=== PATIENT | female | born 1975 | race Caucasian/White ===

== ENCOUNTER 2017-05-19 12:53 | Emergency (ER) | payer OTHER ==
[2017-05-19] MEDS ORDERED: OXYCODONE-ACETAMINOPHEN 5-325 MG TABLET PO ONE (13:11)
[2017-05-19] MEDS ORDERED: IBUPROFEN 600 MG TABLET PO ONE (13:11)
[2017-05-19] MEDS ORDERED: LIDOCAINE 1%/EPINEPHRINE INJ 20 ML VIAL INJ ONE (13:11)
--- NOTE | 2017-05-19 13:13 | ER Document Report ---
ED Medical Screen (RME) - General Chief Complaint: Abscess Stated Complaint: CYST ON THIGH Time Seen by Provider: 05/19/17 13:11 Notes: Patient is a 42-year-old female, past medical history multiple abscesses, presents with 3 days of left groin abscess. PE: large left inguinal/inner leg abscess with surrounding erythema I have greeted and performed a rapid initial assessment of this patient. A comprehensive ED assessment and evaluation of the patient, analysis of test results and completion of the medical decision making process will be conducted by additional ED providers. TRAVEL OUTSIDE OF THE [place] IN LAST 30 DAYS: No - Related Data Allergies/Adverse Reactions: amylase [From Pancrease MT 4] Allergy (Verified 11/30/11 06:07) diphenhydramine HCl [From Benadryl] Allergy (Verified 11/30/11 06:07) lipase [From Pancrease MT 4] Allergy (Verified 11/30/11 06:07) protease [From Pancrease MT 4] Allergy (Verified 11/30/11 06:07) Sulfa (Sulfonamide Antibiotics) Allergy (Verified 11/30/11 06:07) Past Medical History Renal/ Medical History: Denies: Hx Peritoneal Dialysis - Immunizations Hx Diphtheria, Pertussis, Tetanus Vaccination: Yes Physical Exam - Vital signs Vitals: Temp Pulse Resp BP Pulse Ox 98.3 F 96 16 129/93 H 96 05/19/17 13:04 05/19/17 13:04 05/19/17 13:04 05/19/17 13:04 05/19/17 13:04 Course - Vital Signs Vital signs: Temp Pulse Resp BP Pulse Ox 98.3 F 96 16 129/93 H 96 05/19/17 13:04 05/19/17 13:04 05/19/17 13:04 05/19/17 13:04 05/19/17 13:04
[2017-05-19] MEDS ORDERED: LIDOCAINE 4%/TETRACAINE 0.5%/EPI 0.18% 5 ML TOPICAL SOLN TOP ONE (13:38)
[2017-05-19] MEDS ORDERED: LIDOCAINE 1% INJ-PF (10 MG/ML) 30 ML SDV ONE (14:03)
[2017-05-19] MEDS ORDERED: DOXYCYCLINE HYCLATE 100 MG TABLET PO ONE (15:00)
--- NOTE | 2017-05-19 15:06 | ER Document Report ---
ED General - General Chief Complaint: Abscess Stated Complaint: CYST ON THIGH Time Seen by Provider: 05/19/17 13:11 TRAVEL OUTSIDE OF THE [place] IN LAST 30 DAYS: No - HPI Patient complains to provider of: Inguinal abscess Notes: Patient coming in for evaluation of left inguinal abscess ongoing for the last 3 days. Patient is very painful to touch abscess is in the inguinal area adjacent to the labia there is some surrounding cellulitis and redness however patient denies any labial changes denies any peritoneal changes. Denies fevers chills nausea vomiting diarrhea. Patient unaware of any MRSA history denies IV drug use - Related Data Allergies/Adverse Reactions: amylase [From Pancrease MT 4] Allergy (Verified 11/30/11 06:07) diphenhydramine HCl [From Benadryl] Allergy (Verified 11/30/11 06:07) lipase [From Pancrease MT 4] Allergy (Verified 11/30/11 06:07) protease [From Pancrease MT 4] Allergy (Verified 11/30/11 06:07) Sulfa (Sulfonamide Antibiotics) Allergy (Verified 11/30/11 06:07) Past Medical History - Social History Smoking Status: Unknown if Ever Smoked Family History: Reviewed & Not Pertinent Patient has suicidal ideation: No Patient has homicidal ideation: No Renal/ Medical History: Denies: Hx Peritoneal Dialysis - Immunizations Hx Diphtheria, Pertussis, Tetanus Vaccination: Yes Review of Systems - Review of Systems Constitutional: No symptoms reported EENT: No symptoms reported Cardiovascular: No symptoms reported Respiratory: No symptoms reported Gastrointestinal: No symptoms reported Genitourinary: No symptoms reported Female Genitourinary: No symptoms reported Musculoskeletal: No symptoms reported Skin: Other - Abscess Hematologic/Lymphatic: No symptoms reported Neurological/Psychological: No symptoms reported Physical Exam - Vital signs Vitals: Temp Pulse Resp BP Pulse Ox 98.3 F 96 16 129/93 H 96 05/19/17 13:04 05/19/17 13:04 05/19/17 13:04 05/19/17 13:04 05/19/17 13:04 Interpretation: Normal - General General appearance: Appears well, Alert - HEENT Head: Normocephalic, Atraumatic Eyes: Normal Pupils: PERRL - Respiratory Respiratory status: No respiratory distress Chest status: Nontender Breath sounds: Normal Chest palpation: Normal - Cardiovascular Rhythm: Regular Heart sounds: Normal auscultation Murmur: No - Abdominal Inspection: Normal Distension: No distension Bowel sounds: Normal Tenderness: Nontender Organomegaly: No organomegaly - Back Back: Normal, Nontender - Extremities General upper extremity: Normal inspection, Nontender, Normal color, Normal ROM , Normal temperature General lower extremity: Nontender, Normal color, Normal ROM, Normal temperature , Normal weight bearing. No: Normal inspection - Patient with abscess in the left inguinal region with surrounding cellulitis. No erythema in the perineal region no labial involvement, Lexei's sign - Neurological Neuro grossly intact: Yes Cognition: Normal Orientation: AAOx4 [place] Coma Scale Eye Opening: Spontaneous [place] Coma Scale Verbal: Oriented [place] Coma Scale Motor: Obeys Commands [place] Coma Scale Total: 15 Speech: Normal Motor strength normal: LUE, RUE, LLE, RLE Sensory: Normal - Psychological Associated symptoms: Normal affect, Normal mood - Skin Skin Temperature: Warm Skin Moisture: Dry Skin Color: Normal Course - Re-evaluation Re-evalutation: 05/19/17 15:24 Be performed as stated patient will be sent home on doxycycline and pain control. Patient keep the wound clean. Patient will be discharged home - Vital Signs Vital signs: Temp Pulse Resp BP Pulse Ox 98.3 F 96 16 129/93 H 96 05/19/17 13:04 05/19/17 13:04 05/19/17 13:04 05/19/17 13:04 05/19/17 13:04 Procedures - Incision and Drainage Left Thigh Type: Simple Anesthetic type: 1% Lidocaine mL's of anesthetic: 4 Blade size: 11 I&D procedure: Betadine prep applied Incision Method: Incision made by scalpel Amount/type of drainage: 4 cc of pus Notes: 05/19/17 15:25 Patient had I&D of abscess performed with irrigation approximately 30-40 cc normal saline flush to clear loculations skin defect was made to allow for drainage Discharge - Discharge Clinical Impression: Abscess with cellulitis Condition: Good Disposition: HOME, SELF-CARE Instructions: Post Incision and Drainage, Oral Narcotic Medication ([facility]), Abscess ([facility]), Doxycycline ([facility]) Additional Instructions: Take all antibiotics. Continue to monitor the wound if you do see redness again the spread return to the ER. Continue to keep the wound clean Prescriptions: Doxycycline Hyclate 100 mg PO BID #20 capsule Hydrocodone Bit/Acetaminophen [Hydrocodon-Acetaminophen 5-325] 1 each PO Q6 #20 tablet
[2017-05-19 15:32] VITALS: BP 132/97
== END 2017-05-19 15:32 | disposition home or self-care (01) ==
LOC: ER 12:53
PROC: 0H9JXZZ Drainage of Left Upper Leg Skin, External Approach (ICD-10-PCS; principal; 2017-05-19)
DX: L02.416 Cutaneous abscess of left lower limb (principal); L03.116 Cellulitis of left lower limb; Z88.8 Allergy status to other drugs, medicaments and biological substances; Z88.2 Allergy status to sulfonamides
CPT/HCPCS: 10060; 99283; 87070; 87205; 87075; 87077; J3490

== ENCOUNTER 2017-11-28 16:20 | Emergency (ER) | payer OTHER ==
[2017-11-28 16:36] VITALS: BP 136/97
[2017-11-28] MEDS ORDERED: ASPIRIN 325 MG TABLET PO ONE (16:48)
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
[2017-11-28 17:33] LABS: ABSOLUTE BASOPHILS # (AUTO) 0.1 10^3/uL (0.0-0.2); ABSOLUTE EOSINOPHILS # (AUTO) 0.4 10^3/uL (0.0-0.6); ABSOLUTE LYMPHOCYTES (AUTO) 2.5 10^3/uL (0.5-4.7); ABSOLUTE MONOCYTES (AUTO) 0.6 10^3/uL (0.1-1.4); ABSOLUTE NEUT (AUTO) 6.1 10^3/uL (1.7-8.2); BASOPHILS % (AUTO) 0.7 % (0-2); EOSINOPHILS % (AUTO) 3.7 % (0-6); HEMATOCRIT 45.2 % (36.0-47.0); LYMPHOCYTES % (AUTO) 25.9 % (13-45); MEAN CORPUSCULAR HGB CONC 35.4 g/dL (32.0-36.0); MEAN CORPUSCULAR VOLUME 93 fl (80-97); MONOCYTES % (AUTO) 6.1 % (3-13); PLATELET COUNT 236 10^3/uL (150-450); RED BLOOD COUNT 4.85 10^6/uL (3.72-5.28); RED CELL DISTRIBUTION WIDTH 12.9 % (11.5-14.0); SEGMENTED NEUTROPHILS % (AUTO) 63.6 % (42-78); TOTAL CELLS COUNTED % (AUTO) 100 %; WHITE BLOOD COUNT 9.5 10^3/uL (4.0-10.5)
[2017-11-28 17:38] LABS: APPEARANCE,URINE SLIGHTLY-CLOUDY; BILIRUBIN,URINE NEGATIVE (NEGATIVE); COLOR,URINE YELLOW; GLUCOSE, URINE NEGATIVE (NEGATIVE); KETONES,URINE NEGATIVE (NEGATIVE); LEUKOCYTE ESTERASE,URINE TRACE (NEGATIVE); NITRITE,URINE NEGATIVE (NEGATIVE); PROTEIN,URINE NEGATIVE (NEGATIVE); URINE SPECIFIC GRAVITY 1.028; UROBILINOGEN,URINE NEGATIVE mg/dL (<2.0)
--- NOTE | 2017-11-28 17:38 | RADIOLOGY REPORT (SQ) ---
EXAM DESCRIPTION: CHEST PA/LAT COMPLETED DATE/TIME: 11/28/2017 5:29 pm REASON FOR STUDY: CP COMPARISON: 06/13/2009. EXAM PARAMETERS: NUMBER OF VIEWS: two views TECHNIQUE: Digital Frontal and Lateral radiographic views of the chest acquired. RADIATION DOSE: NA LIMITATIONS: none FINDINGS: LUNGS AND PLEURA: No opacities, masses or pneumothorax. No pleural effusion. MEDIASTINUM AND HILAR STRUCTURES: No masses or contour abnormalities. HEART AND VASCULAR STRUCTURES: Heart normal size. No evidence for failure. BONES: No acute findings. HARDWARE: None in the chest. OTHER: No other significant finding. IMPRESSION: NO SIGNIFICANT RADIOGRAPHIC FINDING IN THE CHEST. TECHNICAL DOCUMENTATION: JOB ID: [id number] [employer]- All Rights Reserved
[2017-11-28 17:49] LABS: ALANINE AMINOTRANSFERASE 25 U/L (9-52); ALBUMIN 4.5 g/dL (3.5-5.0); ALKALINE PHOSPHATASE 46 U/L (38-126); ANION GAP 11 (5-19); ASPARTATE AMINO TRANSFERASE 22 U/L (14-36); BILIRUBIN,DIRECT 0.3 mg/dL (0.0-0.4); BILIRUBIN,TOTAL 0.4 mg/dL (0.2-1.3); BLOOD UREA NITROGEN 19 mg/dL (7-20); CALCIUM 10.2 mg/dL (8.4-10.2); CARBON DIOXIDE 26 mmol/L (22-30); CHLORIDE 103 mmol/L (98-107); CREATINE KINASE 140 U/L (30-135); GLUCOSE 89 mg/dL (75-110); POTASSIUM 4.3 mmol/L (3.6-5.0); SODIUM 139.8 mmol/L (137-145); TOTAL PROTEIN 7.1 g/dL (6.3-8.2)
[2017-11-28 18:01] LABS: CREATINE KINASE MB 1.55 ng/mL (<4.55)
[2017-11-28 18:03] LABS: TROPONIN I < 0.012 ng/mL
--- NOTE | 2017-11-29 08:49 | EKG REPORT ---
SEVERITY:- NORMAL ECG - SINUS RHYTHM : Confirmed by: Rudy Awad MD 29-Nov-2017 08:47:48
== END 2017-11-28 18:45 | disposition left against medical advice (07) ==
LOC: ER 16:20
DX: R07.9 Chest pain, unspecified (principal); Z53.20 Procedure and treatment not carried out because of patient's decision for unspecified reasons; Z88.8 Allergy status to other drugs, medicaments and biological substances; Z88.2 Allergy status to sulfonamides
CPT/HCPCS: 36415; 71046; 80053; 81001; 81025; 82550; 82553; 84443; 84484; 85025; 93005; 93010; 99281